=== PATIENT | female | born 1935 | race African-American/Black ===

== ENCOUNTER 2021-10-01 10:37 | Emergency (ER) | payer OTHER ==
[~2021-10-01] VITALS: Ht 157.5 cm; Wt 63.5 kg
--- NOTE | 2021-10-01 10:39 | NUR ---
Patient [facility] [place] ambulance to bed 7.
[2021-10-01 10:40] VITALS: BP 140/80
--- NOTE | 2021-10-01 10:59 | NUR ---
Dr. Cm evaluating patient at bedside.
--- NOTE | 2021-10-01 11:02 | NUR ---
85 y/o female biba from home with s/p fall. Patient tripped over rug and fell. Patient has pain upon movement to right shoulder and right knee. Patient has no discolorations or swelling to right knee or right shoulder. Patient has positive radial and pedal pulses. Patient is noted with an abrasion to right eyelid and right side of face next to eye, per patient she was wearing glasses when she fell. Medical History: DM, HTN, [place] Catheter NKDA
--- NOTE | 2021-10-01 11:10 | NUR ---
Patient was taken via wheelchair to restroom.
--- NOTE | 2021-10-01 11:17 | NUR ---
Patient was taken to imaging via wheelchair.
--- NOTE | 2021-10-01 11:37 | NUR ---
Patient returned from imaging via wheelchair.
[2021-10-01 13:05] VITALS: BP 143/65
--- NOTE | 2021-10-01 13:05 | NUR ---
Patient discharged with v/s stable. Written and verbal after care instructions given. Patient verbalized understanding. Ambulatory with steady gait. All questions addressed prior to discharge. Advised to follow up with PMD.
== END 2021-10-01 13:05 | disposition home or self-care (01) ==
LOC: MED 10:37
DX: S40.011A Contusion of right shoulder, initial encounter (principal); S80.01XA Contusion of right knee, initial encounter; S09.90XA Unspecified injury of head, initial encounter; I10 Essential (primary) hypertension; E11.9 Type 2 diabetes mellitus without complications; E78.5 Hyperlipidemia, unspecified; G47.00 Insomnia, unspecified; Z79.4 Long term (current) use of insulin; Z79.899 Other long term (current) drug therapy; W18.30XA Fall on same level, unspecified, initial encounter; Y93.89 Activity, other specified; Y92.89 Other specified places as the place of occurrence of the external cause; Y99.8 Other external cause status
CPT/HCPCS: 70450; 73030; 73562; 99284